=== PATIENT | female | born 1950 | race Two or more races ===

== ENCOUNTER 2018-05-27 06:22 | Inpatient (IN) | payer MEDICARE ==
[~2018-05-27] VITALS: Ht 152.4 cm; Wt 113.4 kg
--- NOTE | 2018-05-27 06:27 | NUR ---
PT BIB COMPLAINING OF N/V/D SINCE 1 AM, PT WAS BROUGHT FROM [facility] ONLY COMPLETED 1.5 HRS. PT AXO4. RESPIRATIONS EVEN AND UNLABORED. PT PUT ON THE MOWER OPERATOR AND PULSE OX. PENDING EVAL FROM LORY JOSEPH.
--- NOTE | 2018-05-27 06:47 | NUR ---
LORY JOSEPH AT BEDSIDE.
[2018-05-27] MEDS ORDERED: ONDANSETRON HCL/PF 4 MG/2 ML VIAL ONE (06:56)
[2018-05-27] MEDS ORDERED: ONDANSETRON HCL/PF 4 MG/2 ML VIAL IVP ONE (07:00)
--- NOTE | 2018-05-27 07:00 | NUR ---
CHIEF EMBALMER AT BEDSIDE FOR LAB DRAW.
--- NOTE | 2018-05-27 07:40 | NUR ---
REPORT RECEIVED FROM NAVI CORREA FOR EPHRAIM
[2018-05-27 07:44] LABS: BASOPHILS % (AUTO) 0.6 % (0.0-2.0); EOSINOPHILS % (AUTO) 2.1 % (0.0-6.0); HEMATOCRIT 32 % (33-45); HEMOGLOBIN 10.6 g/dL (11.5-14.8); LYMPHOCYTES # (AUTO) 0.6 /CMM (0.8-4.8); LYMPHOCYTES % (AUTO) 6.8 % (20.0-44.0); MEAN CORPUSCULAR HGB CONC 33 g/dl (31.0-36.0); MEAN CORPUSCULAR VOLUME 81 fL (82-100); MONOCYTES # (AUTO) 0.5 /CMM (0.1-1.30); MONOCYTES % (AUTO) 6.1 % (2.0-12.0); NEUTROPHILS # (AUTO) 7.1 /CMM (1.8-8.9); NEUTROPHILS % (AUTO) 84.4 % (43.0-81.0); PLATELET COUNT (AUTO) 189 /CMM (150-450); RED BLOOD CELL COUNT(AUTO) 3.97 MIL/uL (4.0-5.2); WHITE BLOOD COUNT (AUTO) 8.4 K/uL (4.3-11.0)
--- NOTE | 2018-05-27 07:47 | NUR ---
WHEELED VIA GURNEY TO CT SCAN.
[2018-05-27 07:56] LABS: CARBON DIOXIDE 28 mmol/L (21-32); CHLORIDE 105 mmol/L (98-107); CREATININE 4.2 mg/dL (0.6-1.3); GLUCOSE 136 mg/dL (74-106); POTASSIUM 4.6 mmol/L (3.5-5.1); SODIUM SERUM 143 mmol/L (136-145); UREA NITROGEN, BLOOD 25 mg/dL (7-18)
[2018-05-27 08:02] LABS: ALANINE AMINOTRANSFERASE 197 U/L (12-78); ALBUMIN 3.4 g/dL (3.4-5.0); ALKALINE PHOSPHATASE 91 U/L (46-116); ASPARTATE AMINOTRANSFERASE 333 U/L (15-37); BILIRUBIN,DIRECT 1.9 mg/dL (0.0-0.2); BILIRUBIN,TOTAL 2.7 mg/dL (0.2-1.0); LIPASE 1139 U/L (73-393); TOTAL PROTEIN, SERUM 7.2 g/dL (6.4-8.2)
[2018-05-27] MEDS ORDERED: PIPERACILLIN /TAZOBACTAM 3.375 G in IV D5W 50 ML IV ONE (09:00)
[2018-05-27] MEDS ORDERED: OMEP20CA10 PO (09:11)
[2018-05-27] MEDS ORDERED: METO100T14 PO (09:11)
[2018-05-27] MEDS ORDERED: FURO40TA5 PO (09:11)
[2018-05-27] MEDS ORDERED: HYDR-4077 PO (09:11)
[2018-05-27] MEDS ORDERED: INSU100V7 SQ (09:11)
[2018-05-27] MEDS ORDERED: SIMV20TA6 PO (09:11)
[2018-05-27] MEDS ORDERED: OLOP2.5D EACHEYE (09:13)
--- NOTE | 2018-05-27 09:23 | NUR ---
US TECH AT BEDSIDE
--- NOTE | 2018-05-27 10:16 | NUR ---
REPORT GIVEN TO KODY CORREA FOR EPHRAIM
--- NOTE | 2018-05-27 10:30 | NUR ---
SPRINKLER INSPECTOR NOTES [place] PT IS AWAKE, ALERT AND ORIENTED, PT ABLE TO WALK TO BED WITH A CANE, WITH SLOW AND STEADY GAIT, ASSISTED TO BATHROOM, AMADE COMFORTABLE IN BED, ASSISTED TO BED, MADE COMFORTABLE, WITH COMPLAINT OF ABDOMINAL PAIN 5/10, DOES NOT WANT ANY PAIN MEDICATION AT THIS TIME, RESPIRATIONS NORMAL, ON ROOM AIR, ROOM SET UP ORIENTATION PROVIDED TO PT, VERBALIZED UNDERSTANDING, CALL LIGHT PLACED WITHIN REACH, AWAITING ADMITTING ORDERS FROM MD, NO BLEEDING NOTED TO AV SHUNT SITE AT LEFT UPPER ARM, NO EPISODE OF NAUSEA OR VOMITING NOTED.
[2018-05-27 10:40] VITALS: BP 124/62
[2018-05-27] MEDS ORDERED: IV D5/0.45 NACL 1,000 ML IV PRN (10:43)
[2018-05-27] MEDS ORDERED: MAG HYDROX/AL HYDROX/SIMETH 30 ML UDC PO PRN (11:00)
[2018-05-27] MEDS ORDERED: Z GUARD REMEDY 2 OZ OINT TP PRN (11:00)
[2018-05-27] MEDS ORDERED: MAGNESIUM HYDROXIDE 30 ML UDC PO PRN (11:00)
[2018-05-27] MEDS ORDERED: ZOLPIDEM TARTRATE 5 MG TABLET PO PRN (11:00)
[2018-05-27] MEDS ORDERED: ONDANSETRON HCL/PF 4 MG/2 ML VIAL IVP PRN (11:00)
[2018-05-27] MEDS ORDERED: HYDROCODONE/APAP 5/325MG 1 EACH TABLET PO PRN (11:00)
[2018-05-27] MEDS ORDERED: ACETAMINOPHEN 325 MG TABLET PO PRN (11:00)
[2018-05-27] MEDS ORDERED: DEXTROSE 50%-WATER 50 ML DISP.SYRIN IV PRN (12:00)
--- NOTE | 2018-05-27 13:00 | NUR ---
DRILLING FLUIDS SPECIALIST NOTES PT IN BED, AWAKE, ALERT AND ORIENTED, SEEN AND EXAMINED BY DR. CASTANON, PLAN OF CARE DISCUSSED BY MD WITH PT, VERBALIZED UNDERSTANDING, NEEDS ATTENDED.
[2018-05-27] MEDS: BLOOD SUGAR DIAGNOSTIC 1 EACH STRIP IN SCH ×3 (14:01→21:27)
[2018-05-27] MEDS: PIPERACILLIN /TAZOBACTAM 2.25 G in IV D5W 50 ML IV SCH ×2 (14:15→21:15)
[2018-05-27 16:00] VITALS: BP 110/50
--- NOTE | 2018-05-27 18:25 | NUR ---
SHOE DESIGNER NOTES PT IN BED, ASLEEP, EASY TO AROUSE, ALERT AND ORIENTED, NO FURTHER EPISODE OF NAUSEA OR VOMITING, NO COMPLAINT OF PAIN AT THIS TIME, RESPIRATIONS NORMAL, DUE MEDS GIVEN ORDERED, PER DR. CASTANON, CONTINUE HOME MEDS AND OK FOR NPO EXCEPT MEDS, PT INFORMED, CALL LIGHT WITHIN REACH, NEEDS ATTENDED.
--- NOTE | 2018-05-27 19:10 | NUR ---
DOCUMENT SPECIALIST OPENING NOTES Received patient in bed, alert, oriented x 4. Breathing even and unlabored. Not in any distress. No complaints as of this time. Tele monitor in place, sinus tach 102. Call light within fransisca. Bed in low, locked position. Patient stable as endorsed by the AM RN. Will continue to monitor accordingly
[2018-05-27 20:00] VITALS: BP 119/51
[2018-05-27] MEDS: METOPROLOL TARTRATE 50 MG TABLET PO SCH (21:15)
[2018-05-27] MEDS: INSULIN REGULAR, HUMAN 100 UNIT/ML 3 ML VIAL SQ PRN (21:27)
--- NOTE | 2018-05-27 21:28 | NUR ---
RN NOTES BSL checked- 101mg/dL. No insulin coverage given
[2018-05-28] VITALS (8 sets, daily range): BP systolic 123–165; BP diastolic 43–73
[2018-05-28] MEDS: PIPERACILLIN /TAZOBACTAM 2.25 G in IV D5W 50 ML IV SCH ×3 (04:27→21:30)
[2018-05-28] MEDS: INSULIN REGULAR, HUMAN 100 UNIT/ML 3 ML VIAL SQ PRN ×2 (06:36→22:47)
[2018-05-28] MEDS: BLOOD SUGAR DIAGNOSTIC 1 EACH STRIP IN SCH ×4 (06:36→22:46)
--- NOTE | 2018-05-28 06:37 | NUR ---
RN NOTES BSL checked- 102mg/dL. No insulin coverage given
[2018-05-28 06:50] LABS: BASOPHILS % (AUTO) 0.6 % (0.0-2.0); HEMATOCRIT 27 % (33-45); HEMOGLOBIN 9.1 g/dL (11.5-14.8); LYMPHOCYTES # (AUTO) 0.5 /CMM (0.8-4.8); LYMPHOCYTES % (AUTO) 9.7 % (20.0-44.0); MEAN CORPUSCULAR HGB CONC 34 g/dl (31.0-36.0); MEAN CORPUSCULAR VOLUME 80 fL (82-100); MONOCYTES # (AUTO) 0.7 /CMM (0.1-1.30); MONOCYTES % (AUTO) 13.4 % (2.0-12.0); NEUTROPHILS # (AUTO) 4.1 /CMM (1.8-8.9); NEUTROPHILS % (AUTO) 74.3 % (43.0-81.0); PLATELET COUNT (AUTO) 160 /CMM (150-450); RED BLOOD CELL COUNT(AUTO) 3.37 MIL/uL (4.0-5.2); WHITE BLOOD COUNT (AUTO) 5.5 K/uL (4.3-11.0)
--- NOTE | 2018-05-28 06:54 | NUR ---
TAILMAN CLOSING NOTES Patient sleeping in bed, but easily woken. Patient is alert, oriented x 4. Breathing even and unlabored. Not in any distress. No complaints of pain throughout the shift. Tele monitor in place, sinus rhythm 77. All needs attended to. All due meds given as ordered. Call light within reach. Bed in low, locked position. Will endorse EPHRAIM to oncoming RN
--- NOTE | 2018-05-28 07:20 | NUR ---
TELE/RN NOTE THE PATIENT ALERT AND ORIENTED X4. IN ROOM AIR AND DENIES SOB. RESPIRATION REGULAR AND UNLABORED. DENIES PAIN. ABDOMEN SOFT AND NON-DISTENDED. JUAN FRANCISCO G 22 PATENT AND SALINE LOCKED. RFA AV SHUNT WITH NO S/S INFECTION. BED LOW AND LOCKED. SIDE RAILS UP X3. CALL LIGHT WITHIN REACH. WILL CONTINUE TO MONITOR.
[2018-05-28 07:30] LABS: ALBUMIN 2.8 g/dL (3.4-5.0); BILIRUBIN,TOTAL 4.7 mg/dL (0.2-1.0); CALCIUM, SERUM 8.9 mg/dL (8.5-10.1); CREATININE 5.9 mg/dL (0.6-1.3); MAGNESIUM 2.1 mg/dL (1.8-2.4); PHOSPHORUS 4.2 mg/dL (2.5-4.9); POTASSIUM 4.8 mmol/L (3.5-5.1); TOTAL PROTEIN, SERUM 6.4 g/dL (6.4-8.2)
[2018-05-28] MEDS ORDERED: OMEPRAZOLE 20 MG CAPSULE.DR PO SCH (07:30)
[2018-05-28] MEDS: PANTOPRAZOLE 40 MG VIAL IV SCH (08:58)
[2018-05-28] MEDS: FUROSEMIDE 40 MG TABLET PO SCH ×2 (08:58→17:00)
[2018-05-28] MEDS: SIMVASTATIN 20 MG TABLET PO SCH (08:58)
[2018-05-28] MEDS: METOPROLOL TARTRATE 50 MG TABLET PO SCH ×2 (08:59→21:31)
[2018-05-28] MEDS: hydrALAZINE HCL 50 MG TABLET PO SCH ×2 (09:00→17:00)
[2018-05-28] MEDS: INSULIN GLARGINE, 100 UNIT/ML CARTRIDGE SQ SCH (09:00)
--- NOTE | 2018-05-28 09:34 | NUR ---
TELE/RN NOTE LANTUS 20 UNITS DUE AT 0900 IS HELD DUE TO PATIENT REMAINING NPO.
--- NOTE | 2018-05-28 10:56 | NUR ---
TELE/RN NOTE FOLLOW UP CALLS ARE MADE TO PHARMACY TO DELIVER PATANOL 0.1% DUE AT 0900. STILL NOT DELIVERED. WILL CONTINUE TO FOLLOW UP.
[2018-05-28] MEDS: OLOPATADINE HCL 0.1% OPHTH BOTTLE EACHEYE SCH ×2 (13:48→17:44)
--- NOTE | 2018-05-28 13:49 | NUR ---
MS/RN NOTE PATANOL 0.1% IS ADMINISTERED LATE DUE TO PHARMACY LATE DELIVERY.
--- NOTE | 2018-05-28 18:44 | NUR ---
MS/RN NOTE MESSAGED DR ROBLES TO INFORM HIDA SCAN RESULT AND NO REPLY FROM DR ROBLES AT THIS TIME. DR CASTANON IS MADE AWARE OF HIDA SCAN RESULT AND RECEIVED ORDER FOR CLEAR LIQUID DIET NOT AND NPO AFTER MIDNIGHT. UPCOMING SHIFT IS ENDORSED.
--- NOTE | 2018-05-28 18:46 | NUR ---
MS/RN NOTE THE PATIENT ALERT AND ORIENTED X4. IN ROOM AIR AND SATURATION IS AT 97%. DENIES SOB. RESPIRATION REGULAR AND UNLABORED. DENIES PAIN. THE PATIENT IN NO APPARENT DISTRESS. JULISSA G 22 PATENT AND SALINE LOCKED. BED LOW AND LOCKED. SIDE RAILS UP X2. CALL LIGHT WITHIN REACH. WILL ENDORSE TO PLUNGER MACHINE OPERATOR.
--- NOTE | 2018-05-28 19:15 | NUR ---
MS/RN OPENING NOTES PT RECEIVED AWAKE, SITTING UP IN BED. FAMILY MEMBER AT BEDSIDE. ON ROOM AIR, BREATHING EVEN AND UNLABORED. DENIES SOB AND PAIN AT THIS TIME. NO N/V/D. IV TO JULISSA PATENT AND INTACT. NO NEEDS EXPRESSED AT THIS TIME. BED IN LOW/LOCKED POSITION WITH CALL LIGHT IN REACH. BILATERAL UPPER SIDE RAILS IN PLACE. WILL CONTINUE TO MONITOR
[2018-05-29] MEDS: PIPERACILLIN /TAZOBACTAM 2.25 G in IV D5W 50 ML IV SCH ×3 (05:54→21:19)
[2018-05-29 06:28] LABS: BASOPHILS # (AUTO) 0.1 /CMM (0.0-0.2); EOSINOPHILS % (AUTO) 8.6 % (0.0-6.0); HEMATOCRIT 29 % (33-45); HEMOGLOBIN 9.2 g/dL (11.5-14.8); LYMPHOCYTES # (AUTO) 0.9 /CMM (0.8-4.8); LYMPHOCYTES % (AUTO) 13.7 % (20.0-44.0); MEAN CORPUSCULAR HGB CONC 32 g/dl (31.0-36.0); MEAN CORPUSCULAR VOLUME 81 fL (82-100); MONOCYTES # (AUTO) 0.8 /CMM (0.1-1.30); NEUTROPHILS # (AUTO) 4.2 /CMM (1.8-8.9); NEUTROPHILS % (AUTO) 64.7 % (43.0-81.0); PLATELET COUNT (AUTO) 184 /CMM (150-450); RED BLOOD CELL COUNT(AUTO) 3.56 MIL/uL (4.0-5.2); WHITE BLOOD COUNT (AUTO) 6.5 K/uL (4.3-11.0)
[2018-05-29 06:53] LABS: BILIRUBIN,DIRECT 1.6 mg/dL (0.0-0.2); BILIRUBIN,TOTAL 2.6 mg/dL (0.2-1.0); CREATININE 6.9 mg/dL (0.6-1.3); MAGNESIUM 2.3 mg/dL (1.8-2.4); POTASSIUM 4.8 mmol/L (3.5-5.1)
--- NOTE | 2018-05-29 07:00 | NUR ---
MS/RN CLOSING NOTES PT RESTING WITH EYES CLOSED. HOB ELEVATED. ON ROOM AIR, BREATHING EVEN AND UNLABORED. DENIES SOB AND PAIN AT THIS TIME. HD ONGOING AT THIS TIME. IV TO LEFT SHOULDER PATENT AND INTACT. MIKE AV SHUNT NOTED. NPO MAINTAINED POST MIDNIGHT. NO INSULIN COVERAGE ADMINISTERED. ASSISTED TO RESTROOM PRN. ALL NEEDS MET. SLEPT WELL DURING SHIFT. BED REMAINS IN LOW/LOCKED POSITION WITH CALL LIGHT IN REACH. BILATERAL UPPER SIDE RAILS IN PLACE. WILL ENDORSE TO DAY SHIFT RN EPHRAIM.
[2018-05-29] MEDS: BLOOD SUGAR DIAGNOSTIC 1 EACH STRIP IN SCH ×4 (07:35→21:54)
--- NOTE | 2018-05-29 07:51 | NUR ---
MS RN OPENING NOTES RECEIVED PATIENT IN STABLE CONDITION. IN NO APPARENT DISTRESS. BEDSIDE RAILS ARE UPX2. BED IS LOCKED AND LOWERED. CALL LIGHT IS WITHIN REACH. IV LINE IS INTACT AND PATENT. WILL CONTINUE TO MONITOR PATIENT.
[2018-05-29 08:00] VITALS: BP 149/70
[2018-05-29] MEDS: OLOPATADINE HCL 0.1% OPHTH BOTTLE EACHEYE SCH ×2 (09:00→16:50)
[2018-05-29] MEDS: SIMVASTATIN 20 MG TABLET PO SCH (09:00)
[2018-05-29] MEDS: INSULIN GLARGINE, 100 UNIT/ML CARTRIDGE SQ SCH (09:00)
[2018-05-29] MEDS: PANTOPRAZOLE 40 MG VIAL IV SCH (09:00)
[2018-05-29] MEDS: FUROSEMIDE 40 MG TABLET PO SCH ×2 (09:00→16:47)
[2018-05-29] MEDS: METOPROLOL TARTRATE 50 MG TABLET PO SCH ×2 (09:00→21:19)
[2018-05-29] MEDS: hydrALAZINE HCL 50 MG TABLET PO SCH ×2 (09:00→16:47)
[2018-05-29] MEDS: INSULIN REGULAR, HUMAN 100 UNIT/ML 3 ML VIAL SQ PRN ×2 (12:21→21:56)
[2018-05-29 16:00] VITALS: BP 137/55
--- NOTE | 2018-05-29 18:39 | NUR ---
MS RN CLOSING NOTES PATIENT IS IN STABLE CONDITION. IN NO APPARENT DISTRESS. BEDSIDE RAILS ARE UPX2. BED IS LOCKED AND LOWERED. CALL LIGHT IS WITHIN REACH. IV LINE IS INTACT AND PATENT. ALL NEEDS WERE MET. WILL ENDORSE CARE TO TRAFFIC INVESTIGATOR NURSE FOR EPHRAIM.
--- NOTE | 2018-05-29 19:20 | NUR ---
MS RN NOTE RECEIVED PT IN STABLE CONDITION, A&O X4, ABLE TO MAKE NEEDS KNOWN. PT CURRENTLY WATCHING TV WITH GUEST. NO SIGNS OF SOB OR DISTRESS, NO C/O PAIN. IV IN L UPPER SHOULDER PATENT AND INTACT. ALL CURRENT NEEDS ATTENDED TO. SAFETY PRECAUTIONS IN PLACE: BED LOW, LOCKED, UPPER RAILS UP, AND CALL LIGHT WITHIN REACH. WILL CONT. TO MONITOR.
[2018-05-29 20:00] VITALS: BP 123/81
[2018-05-30] MEDS: PIPERACILLIN /TAZOBACTAM 2.25 G in IV D5W 50 ML IV SCH ×3 (04:13→20:47)
[2018-05-30 06:26] LABS: BASOPHILS # (AUTO) 0.1 /CMM (0.0-0.2); BASOPHILS % (AUTO) 1.3 % (0.0-2.0); HEMATOCRIT 27 % (33-45); LYMPHOCYTES # (AUTO) 1.1 /CMM (0.8-4.8); LYMPHOCYTES % (AUTO) 18.5 % (20.0-44.0); MEAN CORPUSCULAR HGB CONC 33 g/dl (31.0-36.0); MEAN CORPUSCULAR VOLUME 80 fL (82-100); MONOCYTES # (AUTO) 0.7 /CMM (0.1-1.30); NEUTROPHILS # (AUTO) 3.2 /CMM (1.8-8.9); NEUTROPHILS % (AUTO) 56.2 % (43.0-81.0); PLATELET COUNT (AUTO) 171 /CMM (150-450); WHITE BLOOD COUNT (AUTO) 5.8 K/uL (4.3-11.0)
--- NOTE | 2018-05-30 06:32 | NUR ---
MS RN NOTE PT IN STABLE CONDITION, A&O X4, ABLE TO MAKE NEEDS KNOWN. PT CURRENTLY WATCHING TV NO SIGNS OF SOB OR DISTRESS, NO C/O PAIN. IV IN LFA PATENT AND INTACT. ALL CURRENT NEEDS ATTENDED TO. SAFETY PRECAUTIONS IN PLACE: BED LOW, LOCKED, UPPER RAILS UP, AND CALL LIGHT WITHIN REACH. WILL CONT. TO MONITOR AND ENDORSE TO NEXT SHIFT FOR EPHRAIM.
[2018-05-30 06:38] LABS: ALBUMIN 2.9 g/dL (3.4-5.0); BILIRUBIN,DIRECT 0.7 mg/dL (0.0-0.2); BILIRUBIN,TOTAL 1.4 mg/dL (0.2-1.0); CALCIUM, SERUM 8.7 mg/dL (8.5-10.1); CREATININE 5.5 mg/dL (0.6-1.3); MAGNESIUM 2.2 mg/dL (1.8-2.4); PHOSPHORUS 4.3 mg/dL (2.5-4.9); POTASSIUM 4.2 mmol/L (3.5-5.1); TOTAL PROTEIN, SERUM 6.8 g/dL (6.4-8.2)
--- NOTE | 2018-05-30 07:31 | NUR ---
MSRN. PT RECEIVED A&0X3, AWAKE AND WATCHING T.V. PT TOLERATING ROOM AIR WITHOUT DISTRESS AND SPO2 WNL. PT DENIES PAIN. PT WITH IVC AT LEFT FA INTACT AND SALINE FLUSH PATENT. MIKE AV SHUNT NAD. PT BED IN LOWEST LOCKED POSITION WITH HANDRIALSX2 AND CALL BRISENO AND BELONGINGS WITHIN REACH. PT BRIEFED ON TODAY'S POC AND DENIES FURTHER NEEDS AT THIS TIME. WILL CONTINUE POC.
[2018-05-30] MEDS: BLOOD SUGAR DIAGNOSTIC 1 EACH STRIP IN SCH ×4 (07:34→21:58)
[2018-05-30 08:00] VITALS: BP 121/44
[2018-05-30] MEDS: PANTOPRAZOLE 40 MG VIAL IV SCH (08:24)
[2018-05-30] MEDS: OLOPATADINE HCL 0.1% OPHTH BOTTLE EACHEYE SCH ×2 (08:24→17:11)
[2018-05-30] MEDS: SIMVASTATIN 20 MG TABLET PO SCH (08:26)
[2018-05-30] MEDS: FUROSEMIDE 40 MG TABLET PO SCH ×2 (08:26→17:01)
[2018-05-30] MEDS: INSULIN GLARGINE, 100 UNIT/ML CARTRIDGE SQ SCH (08:28)
[2018-05-30] MEDS: hydrALAZINE HCL 50 MG TABLET PO SCH ×2 (08:45→17:11)
[2018-05-30] MEDS: METOPROLOL TARTRATE 50 MG TABLET PO SCH ×2 (08:46→20:48)
[2018-05-30] MEDS ORDERED: POTASSIUM CHLORIDE 20 MEQ TAB.PRT.SR PO ONE (09:30)
--- NOTE | 2018-05-30 10:33 | NUR ---
CANNOT DO ECHO PT HAVING DIALYSIS. PATTERNMAKER METAL ADVSD TO COME BACK AFTER 2 HRS.
[2018-05-30 16:00] VITALS: BP 138/56
--- NOTE | 2018-05-30 18:55 | NUR ---
MSRN. PT REMAINS A&0X3, AWAKE AND CHATTING WITH VISITORS. PT TOLERATING ROOM AIR WITHOUT DISTRESS AND SPO2 WNL. PT DENIES PAIN. PT WITH IVC AT LEFT FA INTACT AND SL. MIKE AV SHUNT NAD. NIGHT NURSE TO PREPARE CHECKLIST AND CONSENT. PT BED IN LOWEST LOCKED POSITION WITH HANDRIALSX2 AND CALL BRISENO AND BELONGINGS WITHIN REACH. WILL ENDORSE TO NIGHT NURSE AT BEDSIDE FOR EPHRAIM.
--- NOTE | 2018-05-30 19:20 | NUR ---
MS RN NOTE RECEIVED PT IN STABLE CONDITION, A&O X4, ABLE TO MAKE NEEDS KNOWN. PT IN BED, WITH SISTER AT BEDSIDE WATCHING TV. NO SIGNS OF SOB OR DISTRESS, NO C/O PAIN. IV ON LFA PATENT AND INTACT. MIKE AV SHUNT CLEAN AND IN PLACE, NO SIGNS OF BLEEDING OR INFECTION. ALL CURRENT NEEDS MET. SAFETY PRECAUTIONS IN PLACE : BED LOW, LOCKED, UPPER RAILS UP AND CALL LIGHT WITHIN REACH. WILL CONT. TO MONITOR.
[2018-05-30 21:02] VITALS: BP 134/64
[2018-05-30] MEDS: INSULIN REGULAR, HUMAN 100 UNIT/ML 3 ML VIAL SQ PRN (21:58)
[2018-05-31] MEDS: PIPERACILLIN /TAZOBACTAM 2.25 G in IV D5W 50 ML IV SCH ×3 (04:03→21:39)
[2018-05-31 06:37] LABS: BASOPHILS # (AUTO) 0.1 /CMM (0.0-0.2); BASOPHILS % (AUTO) 1.7 % (0.0-2.0); EOSINOPHILS % (AUTO) 13.3 % (0.0-6.0); HEMATOCRIT 28 % (33-45); HEMOGLOBIN 9.2 g/dL (11.5-14.8); LYMPHOCYTES % (AUTO) 17.7 % (20.0-44.0); MEAN CORPUSCULAR HGB CONC 33 g/dl (31.0-36.0); MEAN CORPUSCULAR VOLUME 79 fL (82-100); MONOCYTES # (AUTO) 0.7 /CMM (0.1-1.30); MONOCYTES % (AUTO) 11.6 % (2.0-12.0); NEUTROPHILS # (AUTO) 3.2 /CMM (1.8-8.9); NEUTROPHILS % (AUTO) 55.7 % (43.0-81.0); PLATELET COUNT (AUTO) 226 /CMM (150-450); RED BLOOD CELL COUNT(AUTO) 3.55 MIL/uL (4.0-5.2); WHITE BLOOD COUNT (AUTO) 5.8 K/uL (4.3-11.0)
--- NOTE | 2018-05-31 06:40 | NUR ---
MS RN NOTE PT IN STABLE CONDITION, A&O X4, ABLE TO MAKE NEEDS KNOWN. PT IN BED WATCHING TV. NO SIGNS OF SOB OR DISTRESS, NO C/O PAIN. IV ON LFA PATENT AND INTACT. MIKE AV SHUNT CLEAN AND IN PLACE, NO SIGNS OF BLEEDING OR INFECTION. ALL CURRENT NEEDS MET. PT NPO SINCE MIDNIGHT, CONSENT SIGNED, AND CHECKLIST STARTED. SAFETY PRECAUTIONS IN PLACE : BED LOW, LOCKED, UPPER RAILS UP AND CALL LIGHT WITHIN REACH. WILL CONT. TO MONITOR AND ENDORSE TO NEXT SHIFT FOR EPHRAIM.
[2018-05-31 07:13] LABS: CALCIUM, SERUM 8.6 mg/dL (8.5-10.1); CREATININE 5.9 mg/dL (0.6-1.3); MAGNESIUM 2.1 mg/dL (1.8-2.4); PHOSPHORUS 4.4 mg/dL (2.5-4.9)
[2018-05-31 07:14] LABS: ALBUMIN 3.1 g/dL (3.4-5.0); BILIRUBIN,DIRECT 0.5 mg/dL (0.0-0.2); BILIRUBIN,TOTAL 1.2 mg/dL (0.2-1.0); TOTAL PROTEIN, SERUM 7.2 g/dL (6.4-8.2)
[2018-05-31] MEDS: BLOOD SUGAR DIAGNOSTIC 1 EACH STRIP IN SCH ×4 (07:37→21:51)
--- NOTE | 2018-05-31 07:37 | NUR ---
RN OPENING NOTE PT WAS RECEIVED ASLEEP IN BED AT THIS TIME IN LOWEST AND LOCKED POSITION WITH SIDE RAILS UP X2, A/O X4, BREATHING EVEN AND UNLABORED ON RA, NO S/S OR COMPLAINTS OF ANY DISTRESS OR PAIN NOTED, IV IS PATENT AND INTACT, PLAN FOR CHOLECYSTECTOMY TODAY WITH CONSENT AND CHECKLIST DONE, SAFETY PRECAUTIONS IN PLACE, CALL LIGHT WITHIN REACH, WILL MONITOR ACCORDINGLY.
[2018-05-31 08:00] VITALS: BP 134/49
[2018-05-31] MEDS: OLOPATADINE HCL 0.1% OPHTH BOTTLE EACHEYE SCH ×2 (08:40→16:47)
[2018-05-31] MEDS: PANTOPRAZOLE 40 MG VIAL IV SCH (08:41)
[2018-05-31] MEDS: INSULIN GLARGINE, 100 UNIT/ML CARTRIDGE SQ SCH (08:41)
[2018-05-31] MEDS: SIMVASTATIN 20 MG TABLET PO SCH (09:00)
[2018-05-31] MEDS: FUROSEMIDE 40 MG TABLET PO SCH (09:00)
[2018-05-31] MEDS: METOPROLOL TARTRATE 50 MG TABLET PO SCH ×2 (09:00→21:00)
[2018-05-31] MEDS: hydrALAZINE HCL 50 MG TABLET PO SCH ×2 (09:00→16:47)
--- NOTE | 2018-05-31 09:15 | NUR ---
RN NOTE PT WAS TAKEN DOWN FOR SURGICAL PROCEDURE AT THIS TIME
[2018-05-31] MEDS ORDERED: BUPIVACAINE MPF 0.5% W/EPI INJ 30 ML VIAL ONE (09:29)
[2018-05-31] MEDS ORDERED: LIDOCAINE HCL/PF 1% 30 ML SDV ONE (09:29)
[2018-05-31] MEDS ORDERED: FENTANYL PF 100MCG/2ML AMPUL ONE (09:48)
[2018-05-31] MEDS ORDERED: VECURONIUM 10 MG VIAL ONE (09:49)
[2018-05-31] MEDS ORDERED: SEVOFLURANE 250 ML BOTTLE IH ONE (11:17)
[2018-05-31] MEDS ORDERED: ALBUTEROL HALF STRENGTH 1.25 MG/3 ML VIAL.NEB ONE (11:57)
[2018-05-31 12:35] VITALS: BP 134/49
--- NOTE | 2018-05-31 12:38 | NUR ---
RN NOTE PT WAS BROUGHT BACK UP AT THIS TIME FROM SURGERY. SURGEON ORDERS NOTED AND CARRIED OUT. PT A/O X4, PT STATES SHE FEELS SHORT OF BREATH BUT VS WNL, SFAETY PRECAUTIONS IN PLACE, CALL LIGHT WITHIN REACH, WILL MONITOR ACCORDINGLY.
[2018-05-31] MEDS ORDERED: HYDROMORPHONE 1 MG/1 ML DISP.SYRIN IV PRN (13:00)
[2018-05-31] MEDS ORDERED: IV LR 1000 ML 1,000 ML IV PRN (13:30)
[2018-05-31] MEDS: GABAPENTIN 300 MG CAPSULE PO SCH ×2 (13:33→21:39)
[2018-05-31] MEDS: IBUPROFEN 400 MG TABLET PO SCH ×2 (13:33→21:39)
[2018-05-31] MEDS: ACETAMINOPHEN 325 MG TABLET PO SCH ×2 (13:33→21:39)
[2018-05-31 16:00] VITALS: BP 137/76
--- NOTE | 2018-05-31 18:59 | NUR ---
RN CLOSING NOTE PT WAS IN BED AT THIS TIME IN LOWEST AND LOCKED POSITION WITH SIDE RAILS UP X2, A/O X4, BREATHING EVEN AND UNLABORED ON RA, NO S/S OR COMPLAINTS OF ANY DISTRESS OR PAIN NOTED, IV IS PATENT AND INTACT, SAFETY PRECAUTIONS IN PLACE, CALL LIGHT WITHIN REACH, WILL ENDORSE TO AUDIO VISUAL TECHNICIAN RN FOR EPHRAIM.
--- NOTE | 2018-05-31 19:20 | NUR ---
MS/RN NOTES RECEIVED PT. LYING IN BED. PT. IS AWAKE, ALERT AND ORIENTED X4. BREATHING EVEN AND UNLABORED NO SOB, RESPIRATORY DISTRESS OR COMPLAINTS OF PAIN NOTED AT THIS TIME. PT. WITH RIGHT UPPER ARM AV SHUNT PRESENT AND INTACT. PT. WITH LEFT FOREARM 20 GAUGE PERIPHERAL IV PRESENT, PATENT AND INTACT ADMINISTERING TO PT. LR @ 50 ML/HR. PT. WITH LEFT WRIST 20 GAUGE IV SALINE LOCK PRESENT, PATENT AND INTACT. BED LOCKED AND IN LOWEST POSITION, SIDE RAILS UP X2, CALL LIGHT WITHIN REACH, WILL CONTINUE TO MONITOR.
[2018-05-31 20:00] VITALS: BP 127/56
--- NOTE | 2018-06-01 03:11 | NUR ---
MS/RN NOTES PT. IS LYING IN BED RESTING. BREATHING EVEN AND UNLABORED ON ROOM AIR. NO SOB, RESPIRATORY DISTRESS OR COMPLAINTS OF PAIN NOTED AT THIS TIME. BED LOCKED AND IN LOWEST POSITION, SIDE RAILS UP X2, CALL LIGHT WITHIN REACH. GAVE REPORT AND ENDORSED PT. TO MADELINE PALOMARES FOR CONTINUITY OF CARE.
--- NOTE | 2018-06-01 03:16 | NUR ---
RN NOTES RECEIVED ENDORSEMENT FROM MADELINE MORNOE FOR Pt's EPHRAIM. NO S/S OF ACUTE DISTRESS OR SOB NOTED. WILL CONTINUE TO MONITOR Pt's CONDITION AND SAFETY THROUGHOUT THE REMAINDER OF THE SHIFT.
[2018-06-01] MEDS: PIPERACILLIN /TAZOBACTAM 2.25 G in IV D5W 50 ML IV SCH ×3 (04:56→21:28)
[2018-06-01] MEDS: IBUPROFEN 400 MG TABLET PO SCH ×3 (05:01→21:28)
[2018-06-01] MEDS: ACETAMINOPHEN 325 MG TABLET PO SCH ×3 (05:01→21:29)
[2018-06-01] MEDS: GABAPENTIN 300 MG CAPSULE PO SCH ×3 (05:01→21:29)
[2018-06-01] MEDS: BLOOD SUGAR DIAGNOSTIC 1 EACH STRIP IN SCH ×4 (06:36→21:38)
--- NOTE | 2018-06-01 06:55 | NUR ---
RN CLOSING NOTES NO SIGNIFICANT CHANGES IN Pt's CONDITION. Pt REMAINS STABLE AT THIS TIME. NO S/S OF ACUTE DISTRESS OR SOB NOTED DURING THE NIGHT. ALL NEEDS MET AND ATTENDED. Pt IS CURRENTLY RESTING IN BED COMFORTABLY. RESPIRATIONS EVEN AND UNLABORED. SAFETY MEASURES IN PLACE. BED LOW, LOCKED, HOB ELEVATED, SIDE RAILS UP, CALL LIGHT AND BEDSIDE TABLE WITHIN REACH. BED ALARM ON. WILL ENDORSE TO DAYSHIFT RN FOR Pt's EPHRAIM.
--- NOTE | 2018-06-01 07:30 | NUR ---
RN MS NOTES PT IN BED, ASLEEP, EASY TO AROUSE, ALERT AND ORIENTED, DENIES PAIN AT THIS TIME, RESPIRATIONS NORMAL, CALL LIGHT WITHIN REACH, IV FLUIDS INFUSING WELL.
[2018-06-01 08:14] VITALS: BP 128/56
[2018-06-01] MEDS: PANTOPRAZOLE 40 MG VIAL IV SCH (08:52)
[2018-06-01] MEDS: SIMVASTATIN 20 MG TABLET PO SCH (08:52)
[2018-06-01] MEDS: hydrALAZINE HCL 50 MG TABLET PO SCH ×2 (08:59→16:16)
[2018-06-01] MEDS: OLOPATADINE HCL 0.1% OPHTH BOTTLE EACHEYE SCH ×2 (08:59→16:52)
[2018-06-01] MEDS: METOPROLOL TARTRATE 50 MG TABLET PO SCH ×2 (09:00→21:28)
[2018-06-01] MEDS: INSULIN GLARGINE, 100 UNIT/ML CARTRIDGE SQ SCH (09:00)
--- NOTE | 2018-06-01 09:00 | NUR ---
RN MS NOTES BP MEDS NON ADMIN, PT HAS NORMAL BP, EXPECTED TO BE DIALIZED TODAY, INSULIN NON ADMIN, PT ON FULL LIQUID DIET, BS 102 THIS MORNING.
[2018-06-01] MEDS: INSULIN REGULAR, HUMAN 100 UNIT/ML 3 ML VIAL SQ PRN ×2 (11:54→21:39)
--- NOTE | 2018-06-01 13:00 | NUR ---
RN MS NOTES PT IN BED, AWAKE, ALERT AND ORIENTED, NO COMPLAINT OF PAIN, NOT IN DISTRESS, DIET ADVANCED TO SOFT, TOLERATED WELL, NO C/O ABD PAIN, NAUSEA OR VOMITING, CALL LIGHT WITHIN REACH.
[2018-06-01 15:36] VITALS: BP 134/57
[2018-06-01 16:43] LABS: BASOPHILS # (AUTO) 0.1 /CMM (0.0-0.2); BASOPHILS % (AUTO) 0.8 % (0.0-2.0); EOSINOPHILS % (AUTO) 3.2 % (0.0-6.0); HEMATOCRIT 24 % (33-45); LYMPHOCYTES # (AUTO) 0.5 /CMM (0.8-4.8); LYMPHOCYTES % (AUTO) 6.9 % (20.0-44.0); MEAN CORPUSCULAR HGB CONC 33 g/dl (31.0-36.0); MEAN CORPUSCULAR VOLUME 79 fL (82-100); MONOCYTES # (AUTO) 0.9 /CMM (0.1-1.30); MONOCYTES % (AUTO) 10.9 % (2.0-12.0); NEUTROPHILS # (AUTO) 6.2 /CMM (1.8-8.9); NEUTROPHILS % (AUTO) 78.2 % (43.0-81.0); PLATELET COUNT (AUTO) 178 /CMM (150-450); RED BLOOD CELL COUNT(AUTO) 3.08 MIL/uL (4.0-5.2); WHITE BLOOD COUNT (AUTO) 7.9 K/uL (4.3-11.0)
[2018-06-01 17:01] LABS: ALBUMIN 2.6 g/dL (3.4-5.0); BILIRUBIN,TOTAL 0.7 mg/dL (0.2-1.0); CREATININE 7.2 mg/dL (0.6-1.3); MAGNESIUM 1.9 mg/dL (1.8-2.4); PHOSPHORUS 5.5 mg/dL (2.5-4.9); POTASSIUM 4.6 mmol/L (3.5-5.1); TOTAL PROTEIN, SERUM 6.2 g/dL (6.4-8.2)
--- NOTE | 2018-06-01 18:10 | NUR ---
RN MS NOTES PT IN BED, AWAKE, ALERT AND ORIENTED, NO COMPLAINT OF PAIN, BREATHING PATTERN NORMAL, PM MEDS GIVEN, BS CHECKED, NO S/S OF HYPO/HYPERGLYCEMIA NOTED, DIET ADVANCED TOLERATED, NO COMPLAINT OF ABDOMINAL PAIN, NAUSEA OR VOMITING, DIALYSIS ONGOING, TOLERATING WELL, ALL NEEDS ATTENDED.
--- NOTE | 2018-06-01 19:23 | NUR ---
MS/RN NOTES RECEIVED PT. LYING IN BED. PT. IS AWAKE, ALERT AND ORIENTED X4. BREATHING EVEN AND UNLABORED NO SOB, RESPIRATORY DISTRESS OR COMPLAINTS OF PAIN NOTED AT THIS TIME. PT. WITH RIGHT UPPER ARM AV SHUNT PRESENT AND INTACT. PT. RECEIVING DIALYSIS AT THIS TIME. DIALYSIS NURSE PRESENT AT BEDSIDE. PT. WITH LEFT FOREARM 20 GAUGE PERIPHERAL IV PRESENT, PATENT AND INTACT. PT. WITH LEFT WRIST 20 GAUGE IV SALINE LOCK PRESENT, PATENT AND INTACT. BED LOCKED AND IN LOWEST POSITION, SIDE RAILS UP X2, CALL LIGHT WITHIN REACH, WILL CONTINUE TO MONITOR.
[2018-06-01 20:00] VITALS: BP 172/48
--- NOTE | 2018-06-01 20:40 | NUR ---
MS/RN NOTES DAILYSIS FINISHED. DIALYSIS NURSE STATED 1000ML WAS REMOVED. WILL CONTINUE TO MONITOR.
[2018-06-02] MEDS: PIPERACILLIN /TAZOBACTAM 2.25 G in IV D5W 50 ML IV SCH (04:54)
[2018-06-02] MEDS: ACETAMINOPHEN 325 MG TABLET PO SCH (05:12)
[2018-06-02] MEDS: GABAPENTIN 300 MG CAPSULE PO SCH (05:12)
[2018-06-02] MEDS: IBUPROFEN 400 MG TABLET PO SCH (05:13)
--- NOTE | 2018-06-02 06:29 | NUR ---
MS/RN NOTES PT. IS LYING IN BED RESTING. BREATHING EVEN AND UNLABORED NO SOB, RESPIRATORY DISTRESS OR COMPLAINTS OF PAIN NOTED AT THIS TIME. PT. WITH RIGHT UPPER ARM AV SHUNT PRESENT AND INTACT. PT. WITH LEFT WRIST 20 GAUGE IV SALINE LOCK PRESENT, PATENT AND INTACT. ALL PT. NEEDS MET. BED LOCKED AND IN LOWEST POSITION, SIDE RAILS UP X2, CALL LIGHT WITHIN REACH, WILL ENDORSE TO DAYSHIFT NURSE FOR CONTINUITY OF CARE.
[2018-06-02] MEDS: BLOOD SUGAR DIAGNOSTIC 1 EACH STRIP IN SCH ×2 (06:42→12:19)
[2018-06-02] MEDS: INSULIN REGULAR, HUMAN 100 UNIT/ML 3 ML VIAL SQ PRN ×2 (06:44→12:28)
[2018-06-02 08:00] VITALS: BP 116/57
--- NOTE | 2018-06-02 08:00 | NUR ---
RN OPENING NOTES Received Patient awake and comfortable, sitting on the edge of the bed watching TV . A/O x 4. Breathing even and unlabored in room air. VS stable with no acute signs and symptoms of distress. Denies pain. Peripheral IV on LEFT HAND removed by Patient. Site clean with no pain, redness nor swelling. ABDOMINAL surgical sites, clean, dry and intact. RIGHT UPPER ARM AV shunt clean, dry and intact. All scheduled medications administered. Safety precautions in place. Bed locked and kept in low position with side rails up x 2. Call light within reach. Will continue to monitor.
[2018-06-02] MEDS: INSULIN GLARGINE, 100 UNIT/ML CARTRIDGE SQ SCH (08:33)
[2018-06-02] MEDS: PANTOPRAZOLE 40 MG VIAL IV SCH (08:33)
[2018-06-02] MEDS: SIMVASTATIN 20 MG TABLET PO SCH (08:34)
[2018-06-02] MEDS: OLOPATADINE HCL 0.1% OPHTH BOTTLE EACHEYE SCH (08:41)
[2018-06-02 08:42] VITALS: BP 116/57
[2018-06-02] MEDS: hydrALAZINE HCL 50 MG TABLET PO SCH (08:42)
[2018-06-02] MEDS: METOPROLOL TARTRATE 50 MG TABLET PO SCH (08:42)
--- NOTE | 2018-06-02 13:30 | NUR ---
CERTIFIED NURSING ASSISTANT INSTRUCTOR NOTES Patient discharged to home at this time. A/O x 4. Ambulatory with minimal assist. Med reconciliation and discharge instructions reviewed and explained. Patient verbalized understanding. Paperwork signed. Prescription handed to Patient. ABDOMINAL INCISION kept clean, dry and intact. ABDOMINAL dressing applied and clean, dry and intact. VS stable with no signs and symptoms of distress. All belongings with Patient. Patient will continue medications as ordered and will follow up with Primary MD. Accompanied Patient with [facility] (Estela) [facility]
== END 2018-06-02 13:30 | disposition home or self-care (01) | DRG 417 ==
LOC: ER 06:30 → TELE 10:20 → MED 05-28 10:21
PROVIDERS: ADMIT Student in an Organized Health Care Education/Training Program; ATTEND Nurse Practitioner Acute Care
PROC: 5A1D70Z Performance of Urinary Filtration, Intermittent, Less than 6 Hours Per Day (ICD-10-PCS; 2018-05-28)
PROC: 5A1D70Z Performance of Urinary Filtration, Intermittent, Less than 6 Hours Per Day (ICD-10-PCS; 2018-05-29)
PROC: 5A1D70Z Performance of Urinary Filtration, Intermittent, Less than 6 Hours Per Day (ICD-10-PCS; 2018-05-30)
PROC: 0FT44ZZ Resection of Gallbladder, Percutaneous Endoscopic Approach (ICD-10-PCS; principal; 2018-05-31)
PROC: 5A1D70Z Performance of Urinary Filtration, Intermittent, Less than 6 Hours Per Day (ICD-10-PCS; 2018-06-01)
DX: K80.12 Calculus of gallbladder with acute and chronic cholecystitis without obstruction (principal); K85.10 Biliary acute pancreatitis without necrosis or infection; N18.6 End stage renal disease; I13.2 Hypertensive heart and chronic kidney disease with heart failure and with stage 5 chronic kidney disease, or end stage renal disease; Z68.42 Body mass index [BMI] 45.0-49.9, adult; D50.9 Iron deficiency anemia, unspecified; D63.1 Anemia in chronic kidney disease; E11.22 Type 2 diabetes mellitus with diabetic chronic kidney disease; K44.9 Diaphragmatic hernia without obstruction or gangrene; K57.30 Diverticulosis of large intestine without perforation or abscess without bleeding; Z99.2 Dependence on renal dialysis; Z79.4 Long term (current) use of insulin; N25.0 Renal osteodystrophy; K42.9 Umbilical hernia without obstruction or gangrene; E66.01 Morbid (severe) obesity due to excess calories; I50.9 Heart failure, unspecified; G47.33 Obstructive sleep apnea (adult) (pediatric); I70.0 Atherosclerosis of aorta
CPT/HCPCS: 36415; 71045-TC; 74181-TC; 76705-TC; 78226; 80048-TC; 80053-TC; 80061-TC; 80076-TC; 82962-TC; 83540-TC; 83605-TC; 83690-TC; 83735-TC; 84100-TC; 84484-TC; 85025-TC; 85610-TC; 85730-TC; 86850-TC; 87081-TC; 88304-TC; 90935-TC; 93307-TC; A6209; A6402; A6403; A9537; C9113; G0378; J0690; J1815; J2405; J2543; J3010; J3490; J7050; J7060; J7120